=== PATIENT | male | born 1960 | race Caucasian/White ===

== ENCOUNTER 2023-06-17 17:34 | Emergency (ER) | payer MEDICAID ==
[~2023-06-17] VITALS: Ht 180.3 cm; Wt 53.0 kg
[2023-06-17 18:19] VITALS: BP 130/68; RESP 17; TEMP 97.8; O2SAT 100
[2023-06-17] MEDS ORDERED: PERM60CR19 TOP (22:18)
== END 2023-06-17 22:46 | disposition home or self-care (01) ==
LOC: ER 17:35
DX: T14.8XXA Other injury of unspecified body region, initial encounter (principal); W57.XXXA Bitten or stung by nonvenomous insect and other nonvenomous arthropods, initial encounter; Y93.89 Activity, other specified; Y92.89 Other specified places as the place of occurrence of the external cause; Y99.8 Other external cause status
CPT/HCPCS: 99283

== ENCOUNTER 2024-10-01 12:18 | Emergency (ER) | payer MEDICAID ==
[~2024-10-01] VITALS: Ht 180.3 cm; Wt 68.2 kg
[2024-10-01 13:06] LABS: HEMOGLOBIN 8.8 g/dl (14.0-17.9)
[2024-10-01 13:08] LABS: HEMATOCRIT 29.7 % (42.0-52.0); MEAN CORPUSCULAR HEMOGLOBIN 19.1 PG (27.0-31.0); MEAN CORPUSCULAR HGB CONC 29.5 g/dL (33.0-36.5); MEAN CORPUSCULAR VOLUME 64.6 FL (78-98); MEAN PLATELET VOLUME 7.4 FL (7.4-10.4); PLATELET COUNT 503 X10'3 (140-440); RED CELL DISTRIBUTION WIDTH 22.6 % (11.5-14.5); WHITE BLOOD COUNT 10.2 X10'3 (4.5-11.0)
[2024-10-01 13:27] LABS: ALBUMIN 3.5 G/DL (3.4-5.0); ANION GAP 15 (8-16); BLOOD UREA NITROGEN 13 MG/DL (7-18); BUN/CREATININE RATIO 17.6 (10.0-20.0); CALCIUM 8.5 MG/DL (8.5-10.1); CHLORIDE 97 MMOL/L (99-107); CREATININE 0.74 MG/DL (0.60-1.10); ETHANOL 269 MG/DL (<10); GLUCOSE 86 MG/DL (70-104); POTASSIUM 3.9 MMOL/L (3.5-5.1); SODIUM 132 MMOL/L (135-145); TOTAL CARBON DIOXIDE 20.1 MMOL/L (24-32); eCRCL 100 ML/MIN; eGFR > 90 ML/MIN
[2024-10-01 13:34] LABS: ACANTHOCYTES 2+; PLATELET ESTIMATE INCREASED; TOTAL CELLS COUNTED 100
[2024-10-01 13:35] LABS: ELLIPTOCYTES 1+; HYPOCHROMASIA 2+; MICROCYTOSIS 2+; TARGET CELLS 1+
[2024-10-01 13:36] LABS: POLYCHROMASIA 1+; SCHISTOCYTES 1+
[2024-10-01 18:12] VITALS: BP 134/74; PULSE 82; RESP 16; TEMP 98; O2SAT 98
== END 2024-10-01 18:14 | disposition home or self-care (01) ==
LOC: ER 12:19
DX: F10.129 Alcohol abuse with intoxication, unspecified (principal); Y90.8 Blood alcohol level of 240 mg/100 ml or more
CPT/HCPCS: 70450; 71045; 72125; 80048; 80320; 85007; 85025; 99285